=== PATIENT | male | born 1980 | race Caucasian/White ===

== ENCOUNTER 2021-01-01 15:53 | Emergency (ER) | payer OTHER ==
[2021-01-01 19:46] LABS: HEMOGLOBIN 16.1 gm/dl (14.0-17.5); RED BLOOD COUNT 5.11 M/UL (4.20-5.50); WHITE BLOOD COUNT 12.2 K/UL (4.5-11.0)
[2021-01-01 20:13] LABS: BUN/CREATININE RATIO 8 (0-10)
[2021-01-02] MEDS ORDERED: ZOFRAN ODT 4 MG4 MG GT (00:13)
[2021-01-02] MEDS ORDERED: PERCOCET 5/325 T1 EA PO (00:13)
== END 2021-01-02 00:25 | disposition home or self-care (01) ==
LOC: ER1 15:53
PROVIDERS: Physician Assistant Medical
DX: K85.90 Acute pancreatitis without necrosis or infection, unspecified (principal); E11.65 Type 2 diabetes mellitus with hyperglycemia; F17.210 Nicotine dependence, cigarettes, uncomplicated; Z87.19 Personal history of other diseases of the digestive system; Z20.822 Contact with and (suspected) exposure to COVID-19
CPT/HCPCS: 36415; 80053; 81001; 82150; 83690; 85025; 96374; 96375; 99284; C9113; J2270; J2405; Q9967; U0002